=== PATIENT | male | born 2000 | race Caucasian/White ===

== ENCOUNTER 2022-12-13 19:44 | Emergency (ER) | payer MEDICAID ==
[~2022-12-13] VITALS: Ht 182.9 cm; Wt 113.4 kg
[~2022-12-13 19:44] MED LIST: ALBUPOW26
[2022-12-13 19:57] VITALS: BP 132/83; TEMP 98.2
[2022-12-13 22:26] VITALS: PULSE 76; RESP 16; O2SAT 97
[2022-12-13] MEDS ORDERED: KETOROLAC TROMETH 60MG/2ML VIAL IM ONE (22:30)
[2022-12-13] MEDS ORDERED: HYDROcodone-ACET 5/325MG TAB PO ONE (22:30)
[2022-12-13] MEDS ORDERED: TRAM50TA2 PO (22:47)
[2022-12-13] MEDS ORDERED: IBUP-1455 PO (22:47)
[2022-12-13] MEDS ORDERED: HYDROmorphone HCL 2 MG/ML VL/or syr IM ONE (23:30)
== END 2022-12-13 23:03 | disposition home or self-care (01) ==
LOC: ER 19:44
DX: S62.336A Displaced fracture of neck of fifth metacarpal bone, right hand, initial encounter for closed fracture (principal); Z79.899 Other long term (current) drug therapy; W22.01XA Walked into wall, initial encounter; Y93.89 Activity, other specified; Y92.89 Other specified places as the place of occurrence of the external cause; Y99.8 Other external cause status
CPT/HCPCS: 29125; 73130; 96372; 99283; J1885